=== PATIENT | female | born 1960 | race Caucasian/White ===

== ENCOUNTER → 2017-06-30 | Outpatient (REF) | payer OTHER, BC ==
[~2017-06-30] MED LIST: /PANT40TA PO; ANTI12.5 PO; TYLE325T5 PO
[2017-06-30 14:30] LABS: PERCENT SATURATION 31.4 % (13.2-45.0)
[2017-06-30 14:33] LABS: FOLATE 11.2 NG/ML (>5.4)
== END ==
LOC: M LAB REF 12:49
PROVIDERS: ATTEND Internal Medicine
DX: Z98.84 Bariatric surgery status (principal)

== ENCOUNTER → 2018-01-21 | Outpatient (CLI) | payer OTHER, BC | LOC: M RAD 07:46 | DX: R10.9 Unspecified abdominal pain (principal); Z53.9 Procedure and treatment not carried out, unspecified reason ==

== ENCOUNTER 2018-04-04 09:01 | Emergency (ER) | payer OTHER, BC ==
[2018-04-04] MEDS: TETRACAINE 0.5% OPHTH SOLN 4ML OU (09:15)
[2018-04-04] MEDS: LISSAMINE GREEN OPHTH 1.5 MG STRIP OU (09:30)
[2018-04-04] MEDS: ERYTHROMYCIN OPHTH OINT OS (09:38)
[2018-04-04] MEDS: NORCO, ANEXSIA 5/325MG TABLET (HYDROcodone/ACETAMINOPHEN) PO (09:39)
== END 2018-04-04 09:51 | disposition home or self-care (01) ==
LOC: M ED 09:01
DX: H16.012 Central corneal ulcer, left eye (principal); J45.909 Unspecified asthma, uncomplicated; K21.9 Gastro-esophageal reflux disease without esophagitis; Z98.84 Bariatric surgery status; Z87.891 Personal history of nicotine dependence
CPT/HCPCS: 99283

== ENCOUNTER → 2018-07-27 | Outpatient (CLI) | payer OTHER, BC ==
[~2018-07-27] MED LIST changes: -/PANT40TA PO; -ANTI12.5 PO; +E-Z-PAQUE 96% w/w SUSP 176GM BTL As Ordered; -TYLE325T5 PO
== END ==
LOC: M RAD 08:18
DX: R10.13 Epigastric pain (principal); R14.0 Abdominal distension (gaseous); R11.0 Nausea; R14.2 Eructation
CPT/HCPCS: 74250

== ENCOUNTER → 2019-04-25 | Outpatient (REF) | payer OTHER, BC ==
[~2019-04-25] MED LIST changes: +ANTI12.5 PO; -E-Z-PAQUE 96% w/w SUSP 176GM BTL As Ordered; +ERYTOIN8 OS; +HYDR-3715 PO; +MAGN250T9 PO; +PANT40TA3; +PROT1TAB2 PO; +TYLE325T5 PO
[2019-04-25 14:18] LABS: INR 0.95; PROTHROMBIN TIME 12.4 SECONDS (11.8-14.0)
[2019-04-25 14:19] LABS: PARTIAL THROMBOPLASTIN TIME 27.3 SECONDS (25.0-38.4)
== END ==
LOC: M LAB REF 12:22
PROVIDERS: ATTEND Internal Medicine
DX: R74.8 Abnormal levels of other serum enzymes (principal); M62.838 Other muscle spasm

== ENCOUNTER → 2019-09-23 | Outpatient (REF) | payer OTHER, BC ==
[2019-09-23 14:59] LABS: FERRITIN 48 NG/ML (8-252)
[2019-09-23 15:07] LABS: FOLATE 10.8 NG/ML; VITAMIN B12 LEVEL > 2000 PG/ML
== END ==
LOC: M LAB REF 14:10
PROVIDERS: ATTEND Internal Medicine
DX: Z98.84 Bariatric surgery status (principal)

== ENCOUNTER → 2020-03-12 | Outpatient (REF) | payer OTHER, BC ==
[2020-03-12 11:38] LABS: PROTHROMBIN TIME 12.9 SECONDS (11.8-14.0)
[2020-03-12 11:39] LABS: PARTIAL THROMBOPLASTIN TIME 26.5 SECONDS (25.0-38.4)
[2020-03-12 12:20] LABS: AMORPHOUS SEDIMENT SMALL (NEGATIVE); APPEARANCE, URINE TURBID (CLEAR); BACTERIA, URINE AUTO NEGATIVE (NEGATIVE); BILIRUBIN, URINE AUTO NEGATIVE (NEGATIVE); BLOOD, URINE BLOOD NEGATIVE (NEGATIVE); COLOR, URINE YELLOW (YELLOW); GLUCOSE, URINE (UA) AUTO NEGATIVE (NEGATIVE); KETONE, URINE AUTO NEGATIVE (NEGATIVE); LEUKOCYTE ESTERASE, URINE AUTO 2+ (NEGATIVE); MUCUS, URINE SMALL (NEGATIVE); NITRITE, URINE AUTO NEGATIVE (NEGATIVE); PROTEIN, URINE AUTO NEGATIVE (NEGATIVE); RBC, URINE AUTO 0 /HPF (0-3); SPECIFIC GRAVITY URINE AUTO 1.029 (1.002-1.035); SQUAMOUS EPITHELIAL CELL UR AU 3 /HPF (0-6); WBC, URINE AUTO 9 /HPF (0-3)
== END ==
LOC: M LAB REF 11:29
PROVIDERS: ATTEND Internal Medicine
DX: K22.4 Dyskinesia of esophagus (principal)

== ENCOUNTER → 2022-08-15 | Outpatient (CLI) | payer OTHER, BC ==
[~2022-08-15] MED LIST changes: +PANT40TA29; -PANT40TA3
[2022-08-15 15:55] LABS: BASO % 0.5 % (0.0-1.0); EOS # 0.1 10^3/uL (0.0-0.5); EOS % 0.8 % (0.0-3.0); HEMATOCRIT 40.7 % (36.0-47.0); HEMOGLOBIN 13.2 g/dl (12.0-15.5); LYMPH # 2.1 10^3/uL (1.5-5.0); LYMPH % 32.2 % (24.0-44.0); MEAN CORPUSCULAR HEMOGLOBIN 32.8 pg (27.0-33.0); MEAN CORPUSCULAR HGB CONC 32.4 g/dl (32.0-36.5); MEAN CORPUSCULAR VOLUME 101.2 fl (80.0-96.0); MONO # 0.4 10^3/uL (0.0-0.8); MONO % 5.4 % (2.0-8.0); NEUTROPHILS # 4.1 10^3/uL (1.5-8.5); NEUTROPHILS % 61.1 % (36.0-66.0); PLATELET COUNT, AUTOMATED 293 10^3/uL (150-450); RED BLOOD COUNT 4.02 10^6/uL (4.00-5.40); WHITE BLOOD COUNT 6.6 10^3/uL (4.0-10.0)
[2022-08-15 16:06] LABS: INR 0.9; PROTHROMBIN TIME 12.3 SECONDS (12.5-14.5)
[2022-08-15 16:07] LABS: PARTIAL THROMBOPLASTIN TIME 26.3 SECONDS (24.8-34.2)
[2022-08-15 16:24] LABS: ALBUMIN 3.2 G/DL (3.2-5.2); ALT/SGPT 16 U/L (7.0-40); BILIRUBIN,TOTAL 0.4 MG/DL (0.3-1.2); BLOOD UREA NITROGEN 12 MG/DL (9-23); CALCIUM LEVEL 8.8 MG/DL (8.3-10.6); CARBON DIOXIDE LEVEL 28 MMOL/L (20-31); CHLORIDE LEVEL 104 MMOL/L (98-107); CREATININE FOR GFR 0.68 MG/DL (0.55-1.30); FERRITIN 35.2 NG/ML (7.3-270.7); GLOMERULAR FILTRATION RATE > 60.0 (>45); GLUCOSE, FASTING 88 MG/DL (74-106); IRON (FE) 108 UG/DL (50-170); SODIUM LEVEL 139 MMOL/L (136-145); TOTAL PROTEIN 6.9 G/DL (5.7-8.2); VITAMIN B12 LEVEL 429 PG/ML (211-911)
[2022-08-15 17:20] LABS: HEMOGLOBIN A1c 4.8 % (4.0-6.0)
== END ==
LOC: M RAD 15:02
PROVIDERS: ATTEND Orthopaedic Surgery
DX: R06.02 Shortness of breath (principal); D64.9 Anemia, unspecified; E11.9 Type 2 diabetes mellitus without complications; I10 Essential (primary) hypertension; R91.8 Other nonspecific abnormal finding of lung field

== ENCOUNTER → 2022-10-29 | Outpatient (CLI) | payer OTHER, BC ==
[~2022-10-29] MED LIST changes: +ISOVUE-370 76% 100ML VIAL As Ordered ONE
== END ==
LOC: M RAD 14:09
PROVIDERS: ATTEND Internal Medicine
DX: R91.1 Solitary pulmonary nodule (principal)

== ENCOUNTER → 2022-12-01 | Outpatient (CLI) | payer OTHER, BC ==
[~2022-12-01] MED LIST changes: -ISOVUE-370 76% 100ML VIAL As Ordered ONE
== END ==
LOC: M PLARAD 09:23
PROVIDERS: ATTEND Internal Medicine
DX: R91.1 Solitary pulmonary nodule (principal)
CPT/HCPCS: 78815; A9552

== ENCOUNTER → 2022-12-25 | Outpatient (CLI) | payer OTHER, BC | LOC: M PLAIMG 11:14 | PROVIDERS: ATTEND Internal Medicine Critical Care Medicine | DX: R91.8 Other nonspecific abnormal finding of lung field (principal) ==

== ENCOUNTER 2023-01-07 06:38 | Day surgery (SDC) | payer OTHER, BC ==
[~2023-01-07] VITALS: Ht 154.9 cm; Wt 65.2 kg
[~2023-01-07 06:38] MED LIST changes: +DULO1CAP5 PO; +TRAM50TA2 PO
[2023-01-07] MEDS ORDERED: ALBUTEROL SULFATE 2.5MG/0.5ML INH NEB SOLN INH ONE (07:00)
[2023-01-07] MEDS ORDERED: LIDOCAINE PRES-FREE 2% 10ML AMP INH ONE (07:00)
[2023-01-07] MEDS ORDERED: fentaNYL 100 MCG/2 ML INJECTION As Ordered ONE (07:02)
[2023-01-07] MEDS ORDERED: MIDAZOLAM INJ 2MG/2ML VIAL As Ordered ONE (07:02)
[2023-01-07] MEDS ORDERED: propofoL 200 MG/20 ML VIAL As Ordered ONE (07:05)
[2023-01-07] MEDS ORDERED: LIDOCAINE 2% 100MG/5ML SDV (FOR ANES.) As Ordered ONE (07:06)
[2023-01-07] MEDS ORDERED: ROCURONIUM BROMIDE 50MG/5ML VIAL As Ordered ONE (07:06)
[2023-01-07] MEDS ORDERED: ONDANSETRON 4MG 2ML VIAL As Ordered ONE (07:07)
[2023-01-07] MEDS ORDERED: LR 1,000 ML IV SCH ×2 (07:15→09:25)
[2023-01-07] MEDS ORDERED: LIDOCAINE 1% SDV 5ML VIAL SC PRN (07:15)
[2023-01-07] MEDS ORDERED: EPINEPHrine 1MG/10ML SYRINGE 1.5IN As Ordered ONE (07:16)
[2023-01-07] MEDS ORDERED: THROMBIN 5,000 UNITS VIAL As Ordered ONE (07:16)
[2023-01-07] MEDS ORDERED: CETACAINE SPRAY 5GM As Ordered ONE (07:16)
[2023-01-07] MEDS ORDERED: ePHEDrine SULFATE 25 MG/5 ML(5MG/ML) SYRINGE As Ordered ONE (08:08)
[2023-01-07] MEDS ORDERED: SUGAMMADEX SODIUM 500 MG/5 ML VIAL (BRIDION) As Ordered ONE (08:52)
[2023-01-07] MEDS ORDERED: MORPHINE 2 MG/ML 1ML VIAL IV PRN (09:25)
[2023-01-07] MEDS ORDERED: fentaNYL 100 MCG/2 ML INJECTION IV PRN (09:25)
[2023-01-07] MEDS ORDERED: ONDANSETRON 4MG 2ML VIAL IV PRN (09:25)
[2023-01-07] MEDS ORDERED: oxyCODONE 5MG TAB PO PRN (09:25)
[2023-01-07 10:28] VITALS: BP 140/76; TEMP 97.5; O2SAT 98
== END 2023-01-07 11:05 | disposition home or self-care (01) ==
LOC: M SDC 06:38
PROVIDERS: ATTEND Internal Medicine Critical Care Medicine
DX: J84.10 Pulmonary fibrosis, unspecified (principal); R94.2 Abnormal results of pulmonary function studies; F41.9 Anxiety disorder, unspecified; G47.30 Sleep apnea, unspecified; R32 Unspecified urinary incontinence; M19.90 Unspecified osteoarthritis, unspecified site; Z79.899 Other long term (current) drug therapy
CPT/HCPCS: 31627; 31628; 31629; 31654; 71045; 76000; 88173; 88305; J0171; J1100; J2250; J2405; J3010; S2900

== ENCOUNTER → 2023-02-04 | Outpatient (CLI) | payer OTHER, BC | LOC: M PLAIMG 13:47 | PROVIDERS: ATTEND Internal Medicine Critical Care Medicine | DX: R91.8 Other nonspecific abnormal finding of lung field (principal) ==

== ENCOUNTER → 2023-02-14 | Outpatient (CLI) | payer OTHER, BC ==
[2023-02-14 12:48] LABS: INR 0.89; PROTHROMBIN TIME 12.2 SECONDS (12.5-14.5)
== END ==
LOC: M LAB 11:26
PROVIDERS: ATTEND Internal Medicine Critical Care Medicine
DX: R91.8 Other nonspecific abnormal finding of lung field (principal)

== ENCOUNTER → 2023-02-17 | Outpatient (CLI) | payer OTHER, BC ==
[~2023-02-17] MED LIST changes: +LIDOCAINE 1% MDV 20ML VIAL As Ordered ONE
[2023-02-17 09:18] LABS: PLATELET COUNT, AUTOMATED 308 10^3/uL (150-450)
[2023-02-17 11:30] VITALS: BP 145/76
== END ==
LOC: M IRPRO 08:20
PROVIDERS: ATTEND Internal Medicine Critical Care Medicine
DX: R91.8 Other nonspecific abnormal finding of lung field (principal)

== ENCOUNTER → 2023-07-17 | Outpatient (CLI) | payer OTHER, BC ==
[~2023-07-17] MED LIST changes: +ISOVUE-370 76% 100ML VIAL ONE; -LIDOCAINE 1% MDV 20ML VIAL As Ordered ONE
== END ==
LOC: M PLAIMG 10:12
PROVIDERS: ATTEND Physician Assistant
DX: K76.0 Fatty (change of) liver, not elsewhere classified (principal); R91.1 Solitary pulmonary nodule; K22.89 Other specified disease of esophagus
CPT/HCPCS: 71260; Q9967

== ENCOUNTER 2023-10-05 06:06 | Day surgery (SDC) | payer OTHER, BC ==
[~2023-10-05] VITALS: Ht 154.9 cm; Wt 65.8 kg
[~2023-10-05 06:06] MED LIST changes: +BIOT1CAP2 PO; -ISOVUE-370 76% 100ML VIAL ONE; +OXYC1TAB23 PO; +ceFAZolin SOD 2 GM in IV 1 EA IV ONE
[2023-10-05] MEDS ORDERED: propofoL 200 MG/20 ML VIAL As Ordered ONE (06:52)
[2023-10-05] MEDS ORDERED: LIDOCAINE 2% 100MG/5ML SDV (FOR ANES.) As Ordered ONE (06:52)
[2023-10-05] MEDS ORDERED: SUGAMMADEX SODIUM 500 MG/5 ML VIAL (BRIDION) As Ordered ONE (06:52)
[2023-10-05] MEDS ORDERED: KETOROLAC 60MG 2ML VIAL As Ordered ONE (06:53)
[2023-10-05] MEDS ORDERED: fentaNYL 100 MCG/2 ML INJECTION As Ordered ONE (06:53)
[2023-10-05] MEDS ORDERED: ROCURONIUM BROMIDE 50MG/5ML VIAL As Ordered ONE (06:53)
[2023-10-05] MEDS ORDERED: ONDANSETRON 4MG 2ML VIAL As Ordered ONE (06:53)
[2023-10-05] MEDS ORDERED: MIDAZOLAM INJ 2MG/2ML VIAL As Ordered ONE (06:53)
[2023-10-05] MEDS ORDERED: LR 1,000 ML IV SCH ×2 (07:15→10:30)
[2023-10-05] MEDS ORDERED: EPINEPHrine INJ 1 MG/ML 1ML AMP PN ONE (07:25)
[2023-10-05] MEDS ORDERED: ROPIvacaine 0.5% 30ML VIAL PN ONE (07:25)
[2023-10-05] MEDS ORDERED: LIDOCAINE 1% SDV 5ML VIAL PN ONE (07:25)
[2023-10-05] MEDS: MIDAZOLAM INJ 2MG/2ML VIAL IV PRN ×2 (07:36→07:40)
[2023-10-05] MEDS: fentaNYL 100 MCG/2 ML INJECTION IV PRN ×2 (07:36→07:40)
[2023-10-05] MEDS ORDERED: VANCOMYCIN 1000MG/20ML VIAL As Ordered ONE (08:56)
[2023-10-05] MEDS ORDERED: BACITRACIN OINTMENT 30GM TUBE As Ordered ONE (10:04)
[2023-10-05] MEDS ORDERED: fentaNYL 100 MCG/2 ML INJECTION IV PRN (10:30)
[2023-10-05] MEDS ORDERED: ONDANSETRON 4MG 2ML VIAL IV PRN (10:30)
[2023-10-05] MEDS ORDERED: HYDROMORPHONE HCL 0.5 MG/ 0.5 ML SYRINGE IV PRN (10:30)
[2023-10-05] MEDS ORDERED: oxyCODONE 5MG TAB PO PRN (10:30)
[2023-10-05] MEDS ORDERED: HYDROmorphone HCL 2MG/ML 1ML VIAL As Ordered ONE (10:37)
[2023-10-05] MEDS ORDERED: OXYC1TAB23 PO (10:47)
[2023-10-05 12:36] VITALS: BP 123/70; TEMP 98.2; O2SAT 97
== END 2023-10-05 13:35 | disposition home or self-care (01) ==
LOC: M SDC 06:06
PROVIDERS: ATTEND Orthopaedic Surgery Hand Surgery
DX: S92.052A Displaced other extraarticular fracture of left calcaneus, initial encounter for closed fracture (principal); S86.021A Laceration of right Achilles tendon, initial encounter; X58.XXXA Exposure to other specified factors, initial encounter; Y92.89 Other specified places as the place of occurrence of the external cause; Y93.89 Activity, other specified; Y99.9 Unspecified external cause status; G47.30 Sleep apnea, unspecified; Z98.84 Bariatric surgery status; Z79.899 Other long term (current) drug therapy; Z79.891 Long term (current) use of opiate analgesic
CPT/HCPCS: 27654; 28415; 76000; 93005; C1713; J0690; J1100; J1170; J1885; J2250; J2405; J3010; J3370

== ENCOUNTER → 2023-10-15 | Outpatient (CLI) | payer OTHER, BC ==
[~2023-10-15] MED LIST changes: -ceFAZolin SOD 2 GM in IV 1 EA IV ONE
== END ==
LOC: M SOG 14:24
PROVIDERS: ATTEND Physician Assistant
DX: S92.052A Displaced other extraarticular fracture of left calcaneus, initial encounter for closed fracture (principal); W18.30XA Fall on same level, unspecified, initial encounter; Y92.009 Unspecified place in unspecified non-institutional (private) residence as the place of occurrence of the external cause

== ENCOUNTER → 2023-10-30 | Outpatient (CLI) | payer OTHER, BC | LOC: M SOG 07:59 | PROVIDERS: ATTEND Physician Assistant | DX: S92.052A Displaced other extraarticular fracture of left calcaneus, initial encounter for closed fracture (principal) ==

== ENCOUNTER → 2023-11-17 | Outpatient (CLI) | payer OTHER, BC | LOC: M SOG 07:52 | PROVIDERS: ATTEND Physician Assistant | DX: S92.052A Displaced other extraarticular fracture of left calcaneus, initial encounter for closed fracture (principal); W18.30XA Fall on same level, unspecified, initial encounter; Y92.009 Unspecified place in unspecified non-institutional (private) residence as the place of occurrence of the external cause ==

== ENCOUNTER → 2023-12-16 | Outpatient (CLI) | payer OTHER, BC | LOC: M SOG 08:00 | PROVIDERS: ATTEND Physician Assistant | DX: S92.052A Displaced other extraarticular fracture of left calcaneus, initial encounter for closed fracture (principal); W18.30XA Fall on same level, unspecified, initial encounter; Y92.009 Unspecified place in unspecified non-institutional (private) residence as the place of occurrence of the external cause ==

== ENCOUNTER → 2024-01-07 | Outpatient (CLI) | payer OTHER, BC ==
[~2024-01-07] MED LIST changes: +ISOVUE-370 76% 100ML VIAL As Ordered ONE
== END ==
LOC: M RAD 14:02
PROVIDERS: ATTEND Physician Assistant
DX: J18.1 Lobar pneumonia, unspecified organism (principal)

== ENCOUNTER → 2024-01-18 | Outpatient (CLI) | payer OTHER, BC ==
[~2024-01-18] MED LIST changes: -ISOVUE-370 76% 100ML VIAL As Ordered ONE
== END ==
LOC: M SOG 15:34
PROVIDERS: ATTEND Physician Assistant
DX: S92.001D Unspecified fracture of right calcaneus, subsequent encounter for fracture with routine healing (principal)

== ENCOUNTER → 2024-07-13 | Outpatient (CLI) | payer OTHER, BC ==
[~2024-07-13] MED LIST changes: +ISOVUE-370 76% 100ML VIAL ONE
== END ==
LOC: M PLAIMG 14:06
PROVIDERS: ATTEND Physician Assistant
DX: R91.8 Other nonspecific abnormal finding of lung field (principal)
CPT/HCPCS: 71260; Q9967

== ENCOUNTER → 2024-10-08 | Outpatient (CLI) | payer OTHER, BC ==
[~2024-10-08] MED LIST changes: -ISOVUE-370 76% 100ML VIAL ONE
[2024-10-08 11:37] LABS: HEMATOCRIT 41.4 % (36.0-47.0); HEMOGLOBIN 13.5 g/dl (12.0-15.5); MEAN CORPUSCULAR HEMOGLOBIN 31.4 pg (27.0-33.0); MEAN CORPUSCULAR HGB CONC 32.6 g/dl (32.0-36.5); MEAN CORPUSCULAR VOLUME 96.3 fl (80.0-96.0); PLATELET COUNT, AUTOMATED 273 10^3/uL (150-450); WHITE BLOOD COUNT 6.5 10^3/uL (4.0-10.0)
[2024-10-08 11:42] LABS: ERYTHROCYTE SEDIMENTATION RATE 14 mm/hr (0-30)
[2024-10-08 11:50] LABS: INR 0.92; PROTHROMBIN TIME 12.7 SECONDS (12.5-14.5)
[2024-10-08 12:08] LABS: ALBUMIN 3.3 G/DL (3.2-5.2); ALKALINE PHOSPHATASE 144 U/L (35-104); ALT/SGPT 23 U/L (7.0-40); AST/SGOT 17 U/L (<34); BILIRUBIN,TOTAL 0.5 MG/DL (0.3-1.2); BLOOD UREA NITROGEN 12 MG/DL (9-23); CALCIUM LEVEL 9.8 MG/DL (8.3-10.6); CARBON DIOXIDE LEVEL 29 MMOL/L (20-31); CHLORIDE LEVEL 108 MMOL/L (98-107); CREATININE FOR GFR 0.64 MG/DL (0.55-1.30); GLOMERULAR FILTRATION RATE > 60.0 (>45); GLUCOSE, FASTING 86 MG/DL (74-106); POTASSIUM SERUM 4.5 MMOL/L (3.5-5.1); SODIUM LEVEL 142 MMOL/L (136-145); TOTAL PROTEIN 6.9 G/DL (5.7-8.2)
== END ==
LOC: M RAD 10:35
PROVIDERS: ATTEND Orthopaedic Surgery
DX: Z01.812 Encounter for preprocedural laboratory examination (principal); M17.0 Bilateral primary osteoarthritis of knee

== ENCOUNTER → 2025-08-16 | Outpatient (CLI) | payer OTHER, BC ==
[2025-08-16 14:25] LABS: CREATININE FOR GFR 0.63 MG/DL (0.55-1.30); GLOMERULAR FILTRATION RATE > 90.0 (>45)
== END ==
LOC: M LAB 12:00
PROVIDERS: ATTEND Physician Assistant
DX: R91.8 Other nonspecific abnormal finding of lung field (principal); J18.1 Lobar pneumonia, unspecified organism

== ENCOUNTER → 2025-08-25 | Outpatient (CLI) | payer OTHER, BC ==
[~2025-08-25] MED LIST changes: +ISOVUE-370 76% 100 ML VIAL As Ordered ONE
== END ==
LOC: M RAD 08:08
PROVIDERS: ATTEND Physician Assistant
DX: R91.8 Other nonspecific abnormal finding of lung field (principal)